=== PATIENT | male | born 1985 | race Caucasian/White ===

== ENCOUNTER 2018-08-25 16:39 | Emergency (ER) | payer SELFPAY ==
--- NOTE | 2018-08-25 16:48 | ER Report ---
History and Physical Time Seen By MD: 16:48 Hx. of Stated Complaint: ABD PAIN STARTING THIS MORNING HPI/ROS CHIEF COMPLAINT: Abdominal pain HISTORY OF PRESENT ILLNESS: 32-year-old male patient presents to emergency room with complaint of abdominal pain. Patient states that he woke up this morning with abdominal pain. He states that the pain started around the bellybutton and radiating down to the right testicle. Patient states he does have tenderness to the right testicle as well. He states that he did drink some whiskey to help with the pain. He states that helped and he was able to fall back asleep. Patient denies any fevers, chills, nausea, vomiting or diarrhea. He states that he is not taking any other medication for this. Patient states that he is currently sexually active, one month ago, with a partner that was new to him. Patient states he came to the emergency room because he is having some much pain . REVIEW OF SYSTEMS: Respiratory: No cough, no dyspnea. Cardiovascular: No chest pain, no palpitations. Gastrointestinal: As noted above Musculoskeletal: No back pain. Home Meds Active Scripts Doxycycline Hyclate (DOXYCYCLINE HYCLATE) 100 Mg Capsule, 100 MG PO BID, #18 CAPSULE Prov:EDSON GONZALES [facility] 08/25/18 Past Medical/Surgical History Patient denies any pertinent medical or surgical history. Reviewed Nurses Notes: Yes Constitutional Vital Sign - Last 24 Hours 08/25/18 08/25/18 08/25/18 08/25/18 16:44 16:44 17:00 17:09 Temp 99.3 Pulse 102 Resp 20 B/P (MAP) 131/95 (107) 136/82 (100) Pulse Ox 93 O2 Delivery Room Air 08/25/18 08/25/18 08/25/18 08/25/18 17:14 17:29 17:30 17:44 Pulse 101 113 ??? B/P (MAP) ???/??? (8635) Pulse Ox 95 88 08/25/18 08/25/18 08/25/18 08/25/18 17:59 18:00 18:14 18:29 Pulse 105 104 93 B/P (MAP) 118/74 (89) Pulse Ox 89 86 94 08/25/18 08/25/18 08/25/18 08/25/18 18:30 18:44 18:59 19:04 Pulse 103 100 97 B/P (MAP) 119/74 (89) Pulse Ox 95 96 95 08/25/18 08/25/18 08/25/18 08/25/18 19:19 19:30 19:34 19:49 Pulse 104 96 94 B/P (MAP) ???/??? (1665) Pulse Ox 96 93 95 Physical Exam General Appearance: The patient is alert, has no immediate need for airway protection and no current signs of toxicity. ENT: Tympanic membranes are pearly-wright, auditory canals are patent, mucous membranes are moist. Respiratory: Chest is non tender, lungs are clear to auscultation. Cardiac: regular rate and rhythm Gastrointestinal: Abdomen is soft and tender in the right lower quadrant to palpation, no masses, bowel sounds normal. : Patient does have swelling and erythema to the right testicle, is tender to touch. Patient does have tenderness at the posterior aspect of the testicle. Musculoskeletal: Neck: Neck is supple and non tender. Extremities have full range of motion and are non tender. Skin: No rashes or lesions. DIFFERENTIAL DIAGNOSIS: After history and physical exam differential diagnosis was considered for abdominal pain including but not limited to appendicitis, cholecystitis, gastritis and urinary tract infection. Included in the differential is orchitis, epididymitis, testicular torsion. Medical Decision Making Data Points Result Diagram: 08/25/18180208/25/181802 Laboratory Hematology Test 08/25/18 16:41 08/25/18 18:03 Urine Color Yellow Urine Clarity Cloudy Urine pH 7.0 pH (4.8-9.5) Urine Specific [place] 1.018 Urine Protein Negative mg/dL (NEGATIVE) Urine Glucose (UA) Negative mg/dL (NEGATIVE) Urine Ketones Negative mg/dL (NEGATIVE) Urine Blood Negative (NEGATIVE) Urine Nitrite Negative (NEGATIVE) Urine Bilirubin Negative (NEGATIVE) Urine Urobilinogen Negative mg/dL (0.2-1.9) Urine Leukocyte Esterase Trace (NEGATIVE) Urine RBC None /HPF (0-2/HPF) Urine WBC 23 /HPF (0-5/HPF) Urine Squamous Epithelial Cells None /LPF (</=FEW) Urine Amorphous Crystals Few /HPF Urine Bacteria Negative /HPF (NONE-FEW) Urine Mucus None /HPF (NONE-FEW) Red Blood Count 4.60 M/uL (4.00-5.60) Mean Corpuscular Volume 103.4 fL (80.0-96.0) Mean Corpuscular Hemoglobin 34.6 pg (26.0-33.0) Mean Corpuscular Hemoglobin Concent 33.5 g/dL (32.0-36.0) Red Cell Distribution Width 13.6 % (11.5-14.5) Mean Platelet Volume 8.9 fL (7.2-11.1) Neutrophils (%) (Auto) 87.1 % (39.4-72.5) Lymphocytes (%) (Auto) 5.3 % (17.6-49.6) Monocytes (%) (Auto) 6.8 % (4.1-12.4) Eosinophils (%) (Auto) 0.6 % (0.4-6.7) Basophils (%) (Auto) 0.2 % (0.3-1.4) Nucleated RBC Relative Count (auto) 0.0 /100WBC Neutrophils # (Auto) 19.6 K/uL (2.0-7.4) Lymphocytes # (Auto) 1.2 K/uL (1.3-3.6) Monocytes # (Auto) 1.5 K/uL (0.3-1.0) Eosinophils # (Auto) 0.1 K/uL (0.0-0.5) Basophils # (Auto) 0.1 K/uL (0.0-0.1) Nucleated RBC Absolute Count (auto) 0.01 K/uL Peripheral Blood Smear Yes Y/N Sodium Level 138 mmol/L (137-145) Potassium Level 3.8 mmol/L (3.5-5.0) Chloride Level 107 mmol/L (98-107) Carbon Dioxide Level 24 mmol/L (22-30) Blood Urea Nitrogen 11 mg/dl (9-21) Creatinine 0.80 mg/dl (0.66-1.25) Glomerular Filtration Rate Calc > 60.0 Random Glucose 103 mg/dl (75-110) Calcium Level 9.2 mg/dl (8.4-10.2) Total Bilirubin 0.4 mg/dl (0.2-1.3) Aspartate Amino Transf (AST/SGOT) 28 U/L (0-35) Alanine Aminotransferase (ALT/SGPT) 36 U/L (0-56) Alkaline Phosphatase 73 U/L (0-126) C-Reactive Protein 2.2 mg/dl (<1.0) Total Protein 7.6 g/dl (6.3-8.2) Albumin 4.1 g/dl (3.5-5.0) Amylase Level 110 U/L (0-110) Lipase 92 U/L (23-300) Chemistry Test 08/25/18 16:41 08/25/18 18:03 Urine Color Yellow Urine Clarity Cloudy Urine pH 7.0 pH (4.8-9.5) Urine Specific [place] 1.018 Urine Protein Negative mg/dL (NEGATIVE) Urine Glucose (UA) Negative mg/dL (NEGATIVE) Urine Ketones Negative mg/dL (NEGATIVE) Urine Blood Negative (NEGATIVE) Urine Nitrite Negative (NEGATIVE) Urine Bilirubin Negative (NEGATIVE) Urine Urobilinogen Negative mg/dL (0.2-1.9) Urine Leukocyte Esterase Trace (NEGATIVE) Urine RBC None /HPF (0-2/HPF) Urine WBC 23 /HPF (0-5/HPF) Urine Squamous Epithelial Cells None /LPF (</=FEW) Urine Amorphous Crystals Few /HPF Urine Bacteria Negative /HPF (NONE-FEW) Urine Mucus None /HPF (NONE-FEW) White Blood Count 22.5 k/uL (4.5-11.0) Red Blood Count 4.60 M/uL (4.00-5.60) Hemoglobin 15.9 g/dL (14.0-18.0) Hematocrit 47.6 % (42.0-52.0) Mean Corpuscular Volume 103.4 fL (80.0-96.0) Mean Corpuscular Hemoglobin 34.6 pg (26.0-33.0) Mean Corpuscular Hemoglobin Concent 33.5 g/dL (32.0-36.0) Red Cell Distribution Width 13.6 % (11.5-14.5) Platelet Count 228 K/uL (150-450) Mean Platelet Volume 8.9 fL (7.2-11.1) Neutrophils (%) (Auto) 87.1 % (39.4-72.5) Lymphocytes (%) (Auto) 5.3 % (17.6-49.6) Monocytes (%) (Auto) 6.8 % (4.1-12.4) Eosinophils (%) (Auto) 0.6 % (0.4-6.7) Basophils (%) (Auto) 0.2 % (0.3-1.4) Nucleated RBC Relative Count (auto) 0.0 /100WBC Neutrophils # (Auto) 19.6 K/uL (2.0-7.4) Lymphocytes # (Auto) 1.2 K/uL (1.3-3.6) Monocytes # (Auto) 1.5 K/uL (0.3-1.0) Eosinophils # (Auto) 0.1 K/uL (0.0-0.5) Basophils # (Auto) 0.1 K/uL (0.0-0.1) Nucleated RBC Absolute Count (auto) 0.01 K/uL Peripheral Blood Smear Yes Y/N Glomerular Filtration Rate Calc > 60.0 Calcium Level 9.2 mg/dl (8.4-10.2) Total Bilirubin 0.4 mg/dl (0.2-1.3) Aspartate Amino Transf (AST/SGOT) 28 U/L (0-35) Alanine Aminotransferase (ALT/SGPT) 36 U/L (0-56) Alkaline Phosphatase 73 U/L (0-126) C-Reactive Protein 2.2 mg/dl (<1.0) Total Protein 7.6 g/dl (6.3-8.2) Albumin 4.1 g/dl (3.5-5.0) Amylase Level 110 U/L (0-110) Lipase 92 U/L (23-300) Urinalysis Test 08/25/18 16:41 Urine Color Yellow Urine Clarity Cloudy Urine pH 7.0 pH (4.8-9.5) Urine Specific [place] 1.018 Urine Protein Negative mg/dL (NEGATIVE) Urine Glucose (UA) Negative mg/dL (NEGATIVE) Urine Ketones Negative mg/dL (NEGATIVE) Urine Blood Negative (NEGATIVE) Urine Nitrite Negative (NEGATIVE) Urine Bilirubin Negative (NEGATIVE) Urine Urobilinogen Negative mg/dL (0.2-1.9) Urine Leukocyte Esterase Trace (NEGATIVE) Urine RBC None /HPF (0-2/HPF) Urine WBC 23 /HPF (0-5/HPF) Urine Squamous Epithelial Cells None /LPF (</=FEW) Urine Amorphous Crystals Few /HPF Urine Bacteria Negative /HPF (NONE-FEW) Urine Mucus None /HPF (NONE-FEW) EKG/Imaging Imaging TESTICULAR HISTORY: right testicular pain, redness and swelling COMPARISON: None. FINDINGS: Testes: Right mildly edematous, hypervascular asymmetrically enlarged without discrete lesion or abscess. Testes otherwise unremarkable. Epididymides: Right moderately edematous, hypervascular and asymmetrically enlarged. Complex 1.1 cm complex cyst/spermatocele versus abscess within right head. Very small cyst left head. Hydrocele: Small volume debris-filled right. None left. Varicocele: None. Additional findings: None. IMPRESSION: 1. Edematous, hypervascular and enlarged right epididymis and testis consistent with epididymoorchitis. 2. 1.1 cm complex cyst/spermatocele versus abscess right epididymal head. Following therapy for epididymoorchitis, ultrasound follow-up to reassess should be considered. 3. Small volume debris-filled right hydrocele. Report Dictated By: Marcus Montgomery MD at 08/25/2018 6:20 PM Report E-Signed By: Marcus Montgomery MD at 08/25/2018 6:24 PM ED Course/Re-evaluation ED Course Patient was medicated exam room, history and physical were obtained. Differential diagnoses were considered. On examination lungs are clear, heart is regular, abdomen is soft and tender in the right lower quadrant. Pain seems to radiate down to the right testicle. On examination her testicles erythematous, is swollen is tender to the touch. A CBC, CMP, urinalysis, ultrasound of the testicle was done. IV was started patient did receive a liter of normal saline. Lab showed the patient did have an elevated white count, CRP was elevated at 2.2, CMP was unremarkable. Due to the elevated white count I did opt to go ahead and collect blood cultures. Blood cultures were obtained and patient did receive a gram of Rocephin. I discussed the case with Dr. Camarena, urologist, who felt the patient should be treated with oral antibiotics and didn't feel the patient necessitated him being admitted to hospital. I did agree with assessment. Patient will go ahead and be treated with doxycycline 100 mg one capsule twice a day for 10 days. We discussed oral pain medication, however the patient does not have any ID, he states that he lost it. As a result we will prescribe him any pain medication. I discussed this with patient who verbalized understanding and agreement with plan. Decision to Disposition Date: Aug 25, 2018 Decision to Disposition Time: 19:45 Depart Departure Latest Vital Signs Vital Signs Date Time Temp Pulse Resp B/P (MAP) Pulse Ox O2 Delivery O2 Flow Rate FiO2 08/25/18 19:49 94 95 08/25/18 19:30 ???/??? (1665) 08/25/18 16:44 99.3 20 Room Air Impression: Primary Impression: Epididymo-orchitis Condition: Improved Disposition: HOME OR SELF-CARE Referrals: NATIVIDAD CAMARENA MD New Scripts Doxycycline Hyclate (DOXYCYCLINE HYCLATE) 100 Mg Capsule 100 MG PO BID, #18 CAPSULE Prov: EDSON GONZALES 08/25/18 Patient Instructions: Epididymo-Orchitis (ED) Additional Instructions: Increase fluid intake. Get plenty of rest. No work till Wednesday. Return to the ER if condition worsens. Follow up with Dr. Camarena in the next week. Take Tylenol or Ibuprofen as needed for pain. Ice your testicles to help with pain. EDSON GONZALES Aug 25, 2018 16:48
[2018-08-25] MEDS ORDERED: NS(*) 0.9% 1000 ML BAG 1,000 ML IV ONE (16:54)
[2018-08-25] MEDS ORDERED: ONDANSETRON 4 MG/2 ML VIAL IVP ONE (16:55)
[2018-08-25] MEDS ORDERED: MORPHINE 2 MG/ML SYR IVP ONE (16:55)
[2018-08-25] MEDS ORDERED: MORPHINE 2 MG/ML SYR ONE (17:15)
[2018-08-25 18:09] LABS: PLATELET COUNT, AUTOMATED 228 K/uL (150-450)
--- NOTE | 2018-08-25 18:28 | RADIOLOGY IMAGING REPORT ---
FACILITY: [facility] [place] PATIENT NAME: Yusuf Castro : 1985 MR: [id number] V: [id number] EXAM DATE: ORDERING PHYSICIAN: EDSON GONZALES TECHNOLOGIST: Location: [facility] Patient: Yusuf Castro : 1985 Visit/Account:[id number] Date of Sevice: 08/25/2018 TESTICULAR HISTORY: right testicular pain, redness and swelling COMPARISON: None. FINDINGS: Testes: Right mildly edematous, hypervascular asymmetrically enlarged without discrete lesion or absc ess. Testes otherwise unremarkable. Epididymides: Right moderately edematous, hypervascular and asymmetrically enlarged. Complex 1.1 cm c omplex cyst/spermatocele versus abscess within right head. Very small cyst left head. Hydrocele: Small volume debris-filled right. None left. Varicocele: None. Additional findings: None. IMPRESSION: 1. Edematous, hypervascular and enlarged right epididymis and testis consistent with epididymoorchiti s. 2. 1.1 cm complex cyst/spermatocele versus abscess right epididymal head. Following therapy for epidi dymoorchitis, ultrasound follow-up to reassess should be considered. 3. Small volume debris-filled right hydrocele. Report Dictated By: Marcus Montgomery MD at 08/25/2018 6:20 PM Report E-Signed By: Marcus Montgomery MD at 08/25/2018 6:24 PM WSN:[id number]
[2018-08-25] MEDS ORDERED: cefTRIAXone(*) 1 GM VIAL 1 GM in NS(*) 0.9% 100 ML ADDVANT BAG 100 ML IVPB ONE (18:30)
[2018-08-25] MEDS ORDERED: ACET/HYDROC 5/325MG TH ER ONLY 2 TAB/BOTTLE PO ONE (19:45)
[2018-08-25] MEDS ORDERED: DOXYCYCLINE HYCL 100 MG TAB TH PO ONE (19:45)
[2018-08-25] MEDS ORDERED: DOXY-181 PO (19:47)
== END 2018-08-25 19:53 | disposition home or self-care (01) ==
LOC: ER 16:48
DX: N45.3 Epididymo-orchitis (principal)
CPT/HCPCS: 36415; 81001; 82150; 83690; 85025; 86140; 87040; 87088; 96361; 96365; 96375; 99284; J0696; J2270; J2405; J7030; J7050; 76870; 82040; 82247; 82310; 82374; 82435; 82565; 82947; 84075; 84132; 84155; 84295; 84450; 84460; 84520